=== PATIENT | male | born 1960 | race Caucasian/White ===

== ENCOUNTER 2016-05-25 23:09 | Emergency (ER) | payer BC ==
--- NOTE | 2016-05-26 00:45 | EDM.PDOC ---
ED HPI GENERAL MEDICAL PROBLEM - General Chief Complaint: Abdominal Pain Stated Complaint: POSSIBLE HERNIA Time Seen by Provider: 05/26/16 00:30 - History of Present Illness INITIAL COMMENTS - FREE TEXT/NARRATIVE: HISTORY AND PHYSICAL: History of present illness: The patient is a 55-year-old male who presents with complaints of right groin pain that started about a month ago when he lost his footing and slipped and fell maybe he pulled something in his lower abs or thigh. The pain has been persistent coming and going but he has not felt any masses in that region. He has had no testicular pain but does state that he gets the pain in the right lower pelvic area it will radiate to his testicle. He has no flank pain he has no hematuria dysuria and no issues initiating a stream or voiding. He has no abdominal complaints and has been eating and drinking normally. The patient was concerned that he might have a hernia and came here for evaluation. He says that sometimes it'll hurt more when he is laying on his back and tries to sit up. Review of systems: As per history of present illness and below otherwise all systems reviewed and negative. Past medical history: As per history of present illness and as reviewed below otherwise noncontributory. Surgical history: As per history of present illness and as reviewed below otherwise noncontributory. Social history: No reported history of drug or alcohol abuse. Family history: As per history of present illness and as reviewed below otherwise noncontributory. Physical exam: General: Well-developed mildly overweight male who is nontoxic and moves easily in the ED without distress. Vital signs of been noted by me. HEENT: Atraumatic, normocephalic, negative for conjunctival pallor or scleral icterus, mucous membranes moist, throat clear, neck supple, nontender, trachea midline. Lungs: Clear to auscultation, breath sounds equal bilaterally, chest nontender. Heart: S1S2, regular, negative for clicks, rubs, or JVD. Abdomen: Soft, nondistended, nontender. Negative for masses or hepatosplenomegaly. Negative for costovertebral tenderness. Pelvis: Stable nontender. Genitourinary: Testicles are descended bilaterally and there is no evidence of testicular swelling erythema or tenderness. There is no tenderness in the right spermatic cord. There is no inguinal adenopathy and on both standing and supine exam with and without Valsalva the patient has no appreciable hernia. The area he indicates as the site of pain is where the abdominal muscles insert onto the pelvis and he says on my exam it is somewhat bilateral but more on the right. Rectal: Deferred. Extremities: Atraumatic, negative for cords or calf pain. Neurovascular unremarkable. Neuro: Awake, alert, oriented. Cranial nerves II through XII unremarkable. Cerebellum unremarkable. Motor and sensory unremarkable throughout. Exam nonfocal. Diagnostics: [] Therapeutics: [] I discussed with the patient that I did not appreciate any critical hernial masses but that he could followup with our surgeon Dr. Pennington as well as primary care if the pain worsens or if he feels any lumps. I've advised him to try to use good body mechanics with lifting and activities and to wear supportive briefs. Impression: Right inguinal pain Definitive disposition and diagnosis as appropriate pending reevaluation and review of above. Right Groin Pain Score (Numeric/FACES): 6 ED ROS GENERAL - Review of Systems Review Of Systems: ROS reveals no pertinent complaints other than HPI. ED EXAM, GENERAL - Physical Exam Exam: See Below (See dictation) Course - Vital Signs Last Recorded V/S: Last Vital Signs Temp 37.0 C 05/25/16 23:52 Pulse 101 H 05/25/16 23:52 Resp 18 05/25/16 23:52 BP 145/94 H 05/25/16 23:52 Pulse Ox 93 L 05/25/16 23:52 Departure - Departure Time of Disposition: 00:44 Disposition: Home, Self-Care 01 Condition: good Clinical Impression: Right inguinal pain Forms: ED Department Discharge Additional Instructions: The following information is given to patients seen in the emergency department who are being discharged to home. This information is to outline your options for follow-up care. We provide all patients seen in our emergency department with a follow-up referral. The need for follow-up, as well as the timing and circumstances, are variable depending upon the specifics of your emergency department visit. If you don't have a primary care physician on staff, we will provide you with a referral. We always advise you to contact your personal physician following an emergency department visit to inform them of the circumstance of the visit and for follow-up with them and/or the need for any referrals to a consulting specialist. The emergency department will also refer you to a specialist when appropriate. This referral assures that you have the opportunity for followup care with a specialist. All of these measure are taken in an effort to provide you with optimal care, which includes your followup. Under all circumstances we always encourage you to contact your private physician who remains a resource for coordinating your care. When calling for followup care, please make the office aware that this follow-up is from your recent emergency room visit. If for any reason you are refused follow-up, please contact the [facility] emergency department at and ask to speak to the emergency department charge nurse. [facility] Primary care- Internal Medicine and Family [facility] [address] [place] [id number] [facility] Specialty Care-General Surgery Professional Building [address] [place] [id number] Please try to use good body mechanics with lifting and activities and wear a supportive belt when he not to do strenuous activities. Please follow up with primary care or Dr. Pennington in neurosurgery clinic for further evaluation of any progression of the pain or new hernia no masses. Please return to ER as needed and as discussed
[2016-05-26 01:23] VITALS: BP 142/90
== END 2016-05-26 00:50 | disposition home or self-care (01) ==
LOC: MW.ED 23:09
DX: R10.30 Lower abdominal pain, unspecified (principal)
CPT/HCPCS: 99282; 99283